=== PATIENT | female | born 1985 | race Caucasian/White ===

== ENCOUNTER 2022-02-21 10:03 | Emergency (ER) | payer OTHER ==
[2022-02-21 10:22] VITALS: BP 122/72
--- NOTE | 2022-02-21 12:17 | ED Physician Documentation ---
History of Present Illness - Stated complaint Stated Complaint: BACK PX - Chief complaint Chief Complaint: Back Pain - Additonal information Additional information: 36-year-old female presents emergency department for evaluation of thoracic back pain. She reports that last night she was at work lifting a patient when she felt a pull in her back. At that time she did not think much of it but when she woke up this morning she found that she had debilitating pain limiting her ability to get out of bed or even take her kids to school. She reports a longstanding history of back pain for which she has a partial [employer] disability. 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 She states that she has meloxicam and Flexeril at home. She has not taken anything for pain and declines pain medication here. She would like a documentation of this injury. She is concerned that her job is worsening her previously known back pain/back injury. She has no fevers, no saddle anesthesia. Pain is mid thoracic back. Does not radiate to the lower lumbar region. Denies any history of diabetes, cancer. Review of Systems Constitutional: denies: Fever, Chills Ears: reports: Reviewed and negative Nose: reports: Reviewed and negative Throat: reports: Reviewed and negative Cardiac: reports: Reviewed and negative Respiratory: reports: Reviewed and negative Skin: reports: Reviewed and negative Musculoskeletal: reports: Back pain Neurologic: denies: Generalized weakness, Focal weakness, Numbness Psychiatric: reports: Reviewed and negative PD PAST MEDICAL HISTORY - Allergies Allergies/Adverse Reactions: Allergies Allergy/AdvReac Type Severity Reaction Status Date / Time Sulfa (Sulfonamide Allergy Rash Verified 02/21/22 10:19 Antibiotics) tioconazole Allergy Rash Verified 02/21/22 10:19 [From Monistat 1 (tioconazole)] PD ED PE NORMAL - General General: Alert and oriented X 3 - Back Back: No: No spinal TTP (Mild midline thoracic tenderness. Patient has an antalgic but unassisted gait. Full forward flexion of the lumbar spine.) - Derm Derm: Normal color, Warm and dry, No rash - Neuro Neuro: Alert and oriented X 3 Eye Opening: Spontaneous Motor: Obeys Commands Verbal: Oriented GCS Score: 15 Results - Vitals Vitals: Vital Signs - 24 hr 02/21/22 10:19 Temperature 37.0 C Heart Rate 82 Respiratory 18 Rate Blood Pressure 122/72 O2 Saturation 98 Oxygen O2 Source Room air - Rads (name of study) thoracic xray Radiology: Final report received (No visualized acute fracture or dislocation.) PD MEDICAL DECISION MAKING - ED course Complexity details: reviewed results, re-evaluated patient, considered differential, d/w patient, d/w family ED course: Well-appearing 36-year-old female presents emergency department for evaluation of thoracic back pain that occurred last night when she was helping lift a patie nt at her job. She does report a history of partial VA disability due to back pain. She also reports a history of scoliosis. She did notice some initial pain after lifting the patient but it was exquisite this morning limiting her ability to get out of bed. She has no red flags. She declined analgesia here in the emergency department reporting that she has meloxicam and Flexeril at home. She wants documentation of this back injury and wants to make sure that the job she is performing at work is not worsening her previous back pain. On exam there was some mild midline thoracic tenderness but no step-off crepitus or deformity. She has normal forward full flexion of the spine at the the lumbar region. She has an antalgic but unassisted gait. Given lack of radiation to the legs I doubt sciatica. A thoracic x-ray was completed and shows no acute findings. Imaging findings were discussed with patient and her at the bedside. She is encouraged to follow closely with her primary care provider as well as her VA contract administration specialist. Otherwise red flag and emergent return precautions were discussed for worsening back pain. Departure - Departure Disposition: 01 Home, Self Care Clinical Impression: Thoracic back pain Qualifiers: Chronicity: unspecified Back pain laterality: unspecified Qualified Code(s): M54.6 - Pain in thoracic spine Comments: Britt you came to the emergency department today because you have some thoracic back pain. You reported to me that you have a history of scoliosis as well as some more chronic back pain for which you have an associated VA dis ability. He stated that last night when lifting a patient at work you had some mild pain but it was worse this morning when he woke up. While here in the emergency department today you did decline pain medication. We did obtain an x-ray of your thoracic spine and though there is some mild scoliosis there is nothing to suggest fracture or dislocations. I encourage you to continue to follow closely with your primary care provider and/or your VA specialist. You can take the meloxicam and Flexeril that you have at home. Reasons to return to the emergency department would include severe difficulty breathing, numbness in your arms or legs, inability to control the flow of your bowel or bladder function or numbness in your genital area.
--- NOTE | 2022-02-21 12:57 | XRAY Report ---
PROCEDURE: Thoracic Spine 3 View INDICATIONS: thoracic back pain after pulling patient TECHNIQUE: 3 views of the thoracic spine were acquired. COMPARISON: None. FINDINGS: Bones: No fractures or dislocations. No suspicious bony lesions. 12 pairs of ribs are noted, and a ppear intact where visualized. Soft tissues: No paravertebral stripe thickening. IMPRESSION: No visualized acute fracture or dislocation. However, occult injury cannot be excluded. Recommend timmy rt interval imaging follow-up in 7-10 days as clinically indicated for additional evaluation. Reviewed by: Lucía Alicea MD on 02/21/2022 12:55 PM PDT Approved by: Lucía Alicea MD on 02/21/2022 12:55 PM PDT Station ID: [id number]
== END 2022-02-21 13:59 | disposition home or self-care (01) ==
LOC: ED 10:03
DX: M54.6 Pain in thoracic spine (principal)
CPT/HCPCS: 99282; 99283

== ENCOUNTER 2022-06-08 09:56 | Outpatient (CLI) | payer OTHER ==
[2022-06-08 15:18] LABS: B. PARAPERTUSSIS- RESP PCR PAN NOT DETECTED; B. PERTUSSIS- RESP PCR PANEL NOT DETECTED; C. PNEUMONIAE- RESP PCR PANEL NOT DETECTED; CORONAVIRUS 229E-RESP PCR NOT DETECTED; CORONAVIRUS HKU1-RESP PCR NOT DETECTED; CORONAVIRUS NL63-RESP PCR NOT DETECTED; CORONAVIRUS OC43-RESP PCR NOT DETECTED; HUMAN METAPNEUMOVIRUS NOT DETECTED; INFLUENZA A- RESP PCR PANEL NOT DETECTED; INFLUENZA B - RESP PCR PANEL NOT DETECTED; M. PNEUMONIAE- RESP PCR PANEL NOT DETECTED; PARAINFLUENZA VIRUS 1 NOT DETECTED; PARAINFLUENZA VIRUS 2 NOT DETECTED; PARAINFLUENZA VIRUS 3 NOT DETECTED; PARAINFLUENZA VIRUS 4 NOT DETECTED; RHINOVIRUS/ENTEROVIRUS NOT DETECTED; RSV- RESP PCR PANEL NOT DETECTED; SARS-CoV-2 -RESP PCR PANEL NOT DETECTED
== END 2022-06-08 23:59 | disposition home or self-care (01) ==
LOC: LAB.N 09:56
PROVIDERS: ATTEND Nurse Practitioner
DX: J06.9 Acute upper respiratory infection, unspecified (principal); Z20.822 Contact with and (suspected) exposure to COVID-19
CPT/HCPCS: 87633

== ENCOUNTER 2022-09-02 09:29 | Outpatient (CLI) | payer OTHER ==
--- NOTE | 2022-09-04 08:26 | MRI Report ---
PROCEDURE: CERVICAL SPINE WO INDICATIONS: CERVICALGIA TECHNIQUE: Noncontrast sagittal T1 spin echo and T2 fast spin echo, sagittal STIR, foraminal oblique sagittal T2 fast spin echo, and axial gradient echo or T2 fast spin echo through the cervical spine. COMPARISON: None. FINDINGS: Image quality: Excellent. Alignment and Curvature: There is loss of normal cervical lordosis. Bone Marrow: Marrow demonstrates normal overall signal. There is mild reactive signal throughout th e endplates of the cervical and upper thoracic spine, most prominent at C4-C5 and C5-C6. Spinal Cord: Visualized spinal cord has normal size and signal. No cerebellar tonsillar herniation. Paraspinous Soft Tissues: No paravertebral masses. Prevertebral soft tissues are normal in thicknes s. C2-C3: Mild disc desiccation. No significant canal nor foraminal stenosis. C3-C4: Mild disc desiccation. Mild facet and uncovertebral hypertrophy bilaterally. Mild canal sten osis. Moderate bilateral foraminal stenosis. C4-C5: Mild disc desiccation and diffuse disc bulge. Mild facet and uncovertebral hypertrophy bilate rally. Moderate to severe canal stenosis. Mild cord flattening. Severe right and moderate left forami nal stenosis. Right C5 nerve root compression. C5-C6: Mild disc height loss and desiccation. Mild diffuse disc bulge. Mild facet and uncovertebral hypertrophy bilaterally. Severe canal stenosis. Mild cord flattening. Moderate bilateral foraminal st enosis. C6-C7: Mild disc desiccation and diffuse disc bulge. Mild facet and uncovertebral hypertrophy. Mild canal stenosis. Mild bilateral foraminal stenosis. C7-T1: Mild disc desiccation. No significant canal nor foraminal stenosis. IMPRESSION: 1. Multilevel degenerative disc and facet disease, as well as uncovertebral hypertrophy. 2. Multilevel canal stenoses, worst at C4-C5 and C5-C6 where there is mild cord flattening. 3. Multilevel foraminal stenoses, worst at C4-C5 where there is associated intraforaminal nerve root compression. Recommend correlation with clinical symptoms to ascertain relevance of this finding. Reviewed by: Channing Vasquez MD on 09/04/2022 8:25 AM PDT Approved by: Channing Vasquez MD on 09/04/2022 8:25 AM PDT Station ID: [id number]
== END 2022-09-02 09:30 | disposition home or self-care (01) ==
LOC: DI 09:29
DX: M50.31 Other cervical disc degeneration, high cervical region (principal); M48.02 Spinal stenosis, cervical region; M47.812 Spondylosis without myelopathy or radiculopathy, cervical region

== ENCOUNTER 2023-01-16 16:46 | Emergency (ER) | payer OTHER ==
[2023-01-16 17:22] LABS: RAPID STREP SCREEN Negative (Negative)
--- NOTE | 2023-01-16 17:36 | ED Physician Documentation ---
History of Present Illness - Stated complaint Stated Complaint: CONGESTED/LOOMIS - Chief complaint Chief Complaint: General - History obtained from History obtained from: Patient - History of Present Illness Timing: How many days ago (2) Pain level max: 0 Pain level now: 0 - Additonal information Additional information: Patient is a 37-year-old female who complains of nasal congestion, headache and feeling generally unwell for the past 2 to 3 days. 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 She states she is not having any significant coughing. She has small children at home as well that have been sick with upper respiratory infections. She took a home COVID test which was negative. Nothing makes it better or worse. Denies any possibility of . Review of Systems Constitutional: denies: Fever, Chills Nose: reports: Rhinorrhea / runny nose, Congestion Throat: reports: Sore throat Respiratory: denies: Dyspnea, Cough, Wheezing GI: denies: Abdominal Pain, Vomiting, Diarrhea : denies: Now EGA Skin: denies: Rash PD PAST MEDICAL HISTORY - Past Medical History Past Medical History: No Cardiovascular: None Respiratory: None Neuro: None Endocrine/Autoimmune: None GI: None PRODUCTION BROACHING MACHINE OPERATOR: None : None HEENT: None Psych: None Musculoskeletal: None Derm: None - Past Surgical History Past Surgical History: Yes General: Cholecystectomy, Appendectomy /PRODUCTION BROACHING MACHINE OPERATOR: section, Breast implants HEENT: Tonsil/Adenoidectomy - Present Medications Home Medications: Ambulatory Orders Medication Instructions Recorded Confirmed Cetirizine HCl/Pseudoephedrine 1 tab PO BID PRN #20 tab 01/16/23 [Zyrtec-D ER 5 mg-120 mg Tablet] - Allergies Allergies/Adverse Reactions: Allergies Allergy/AdvReac Type Severity Reaction Status Date / Time Sulfa (Sulfonamide Allergy Rash Verified 01/16/23 16:54 Antibiotics) tioconazole Allergy Rash Verified 01/16/23 16:54 [From Monistat 1 (tioconazole)] - Social History Does the pt smoke?: No Smoking Status: Never smoker Does the pt drink ETOH?: Yes Does the pt have substance abuse?: No - Immunizations Immunizations are current?: Yes PD ED PE NORMAL - Vitals Vital signs reviewed: Yes - General General: Alert and oriented X 3, No acute distress - HEENT HEENT: PERRL, Ears normal, Moist mucous membranes, Pharynx benign - Neck Neck: Supple, no meningeal sign - Cardiac Cardiac: RRR, Strong equal pulses - Respiratory Respiratory: No respiratory distress, Clear bilaterally - Abdomen Abdomen: Soft, Non tender, Non distended - Derm Derm: Warm and dry - Neuro Neuro: Alert and oriented X 3 - Psych Psych: Normal mood, Normal affect Results - Vitals Vitals: Vital Signs - 24 hr 01/16/23 01/16/23 16:54 17:55 Temperature 36.9 C Heart Rate 85 96 Respiratory 18 16 Rate Blood Pressure 117/74 120/84 H O2 Saturation 98 96 Oxygen O2 Source Room air - Labs Labs: Laboratory Tests 01/16/23 01/16/23 17:00 17:00 Nasal Adenovirus (PCR) NOT DETECTED Nasal B. parapertussis DNA (PCR) NOT DETECTED Nasal Coronavir 229E PCR NOT DETECTED Nasal Coronavir HKU1 PCR NOT DETECTED Nasal Coronavir NL63 PCR NOT DETECTED Nasal Coronavir OC43 PCR NOT DETECTED Nasal Enterovir/Rhinovir PCR DETECTED A Nasal Influenza B PCR NOT DETECTED Nasal Influenza A PCR NOT DETECTED Nasal Parainfluen 1 PCR NOT DETECTED Nasal Parainfluen 2 PCR NOT DETECTED Nasal Parainfluen 3 PCR NOT DETECTED Nasal Parainfluen 4 PCR NOT DETECTED Nasal RSV (PCR) NOT DETECTED Nasal B.pertussis DNA PCR NOT DETECTED Nasal C.pneumoniae (PCR) NOT DETECTED Bart Human Metapneumo PCR NOT DETECTED Nasal M.pneumoniae (PCR) NOT DETECTED Nasal SARS-CoV-2 (PCR) NOT DETECTED Group A Strep Rapid Negative PD Medical Decision Making - ED course Complexity details: reviewed results, considered differential, d/w patient ED course: Patient is well-appearing, nontoxic. Afebrile. No hypoxia. No respiratory distress. Positive for rhinovirus on respiratory PCR. We will place the patient on decongestants for home and have her follow-up with her PCP as needed. Patient counseled regarding signs and symptoms for which I believe and urgent re-evaluation would be necessary. Patient with good understanding of and agreement to plan and is comfortable going home at this time This document was made in part using voice recognition software. While efforts are made to proofread this document, sound alike and grammatical errors may occur. Departure - Departure Disposition: 01 Home, Self Care Clinical Impression: Viral URI Condition: Good Instructions: ED Viral Syndrome Follow-Up: your,doctor in 1 week if not better [Other] Prescriptions: Cetirizine HCl/Pseudoephedrine [Zyrtec-D ER 5 mg-120 mg Tablet] 1 tab PO BID PRN #20 tab PRN Reason: nasal congestion Comments: Your prescription was sent to [facility] in [place]. Please follow-up with your doctor as needed for further care. Your respiratory PCR was sent and will return later tonight, you can check the results on the patient portal. Otherwise I can call you with the results later this evening, if you do not hear from me by approximately 8 PM, please call and I will give you your results. Forms: PCP List, Activity restrictions Discharge Date/Time: 01/16/23 17:55
[2023-01-16 18:02] VITALS: BP 120/84; O2SAT 96
[2023-01-16 18:05] LABS: B. PARAPERTUSSIS- RESP PCR PAN NOT DETECTED; B. PERTUSSIS- RESP PCR PANEL NOT DETECTED; C. PNEUMONIAE- RESP PCR PANEL NOT DETECTED; CORONAVIRUS 229E-RESP PCR NOT DETECTED; CORONAVIRUS HKU1-RESP PCR NOT DETECTED; CORONAVIRUS NL63-RESP PCR NOT DETECTED; CORONAVIRUS OC43-RESP PCR NOT DETECTED; HUMAN METAPNEUMOVIRUS NOT DETECTED; INFLUENZA A- RESP PCR PANEL NOT DETECTED; INFLUENZA B - RESP PCR PANEL NOT DETECTED; M. PNEUMONIAE- RESP PCR PANEL NOT DETECTED; PARAINFLUENZA VIRUS 1 NOT DETECTED; PARAINFLUENZA VIRUS 2 NOT DETECTED; PARAINFLUENZA VIRUS 3 NOT DETECTED; PARAINFLUENZA VIRUS 4 NOT DETECTED; RHINOVIRUS/ENTEROVIRUS DETECTED; RSV- RESP PCR PANEL NOT DETECTED; SARS-CoV-2 -RESP PCR PANEL NOT DETECTED
== END 2023-01-16 17:55 | disposition home or self-care (01) ==
LOC: ED 16:46
DX: J06.9 Acute upper respiratory infection, unspecified (principal); B97.89 Other viral agents as the cause of diseases classified elsewhere; Z20.822 Contact with and (suspected) exposure to COVID-19
CPT/HCPCS: 87070; 87430; 87633; 99283